=== PATIENT | female | born 2000 | race Caucasian/White ===

== ENCOUNTER 2018-05-26 18:48 | Emergency (ER) | payer SELFPAY ==
[~2018-05-26] VITALS: Ht 160 cm; Wt 53.2 kg
[2018-05-26] MEDS ORDERED: POVIDONE-IODINE 10% 15 ML SOLUTION UD TP ONE (19:45)
[2018-05-26] MEDS ORDERED: KETOROLAC TROMETHAMINE 10 MG TABLET PO ONE (19:45)
[2018-05-26] MEDS ORDERED: BACITRACIN 0.9 GM PACKET OINTMENT TP ONE (20:45)
[2018-05-26 20:50] VITALS: BP 130/72
== END 2018-05-26 20:55 | disposition home or self-care (01) ==
LOC: EMS 18:50
DX: S01.01XA Laceration without foreign body of scalp, initial encounter (principal); S06.0X0A Concussion without loss of consciousness, initial encounter; Y00.XXXA Assault by blunt object, initial encounter; Y93.89 Activity, other specified; Y92.89 Other specified places as the place of occurrence of the external cause; Y99.8 Other external cause status
CPT/HCPCS: 12002